=== PATIENT | female | born 1965 | race Caucasian/White ===

== ENCOUNTER → 2017-02-19 | Day surgery (SDC) | payer BC ==
[~2017-02-19] MED LIST: Acetaminophen/oxyCODONE 325-5 MG Tab PO PRN; Albuterol 0.083% 2.5 MG/3 ML Neb Soln NEB ONE; Glycopyrrolate 0.2 MG/ML SDV ONE; HYDROCHLOROTHIAZIDE 25 MG PO SCH; HYDROmorphone 0.5 MG/0.5 ML Syringe IVPUSH PRN; HYDROmorphone 1 MG/ML Syringe ONE; Ibuprofen 600 MG Tab PO PRN; Ketorolac 15 MG/ML SDV IVPUSH SCH; Ketorolac 30 MG/ML SDV ONE; Lactated Ringers 1,000 ML ONE; Lidocaine 1% 4 ML ONE; Lidocaine 1%/Sod Bicarbonate in NS 8.4% 1 ML Syringe PRN; METFORMIN 500 MG PO SCH; Magnesium Hydroxide 400 MG/5 ML Susp 30 ML Cup PO PRN; Metoclopramide 10 MG/2 ML SDV IV PRN; Midazolam 1 MG/ML 2 ML SDV ONE; Montelukast 10 MG Tab PO SCH; Neostigmine Methylsulfate 10 MG/10 ML MDV ONE; Ondansetron 4 MG/2 ML SDV IVPUSH PRN; Ondansetron 4 MG/2 ML SDV ONE; PIOGLITAZONE HCL 45 MG PO SCH; Pantoprazole 40 MG Tab.CR PO SCH; Phenylephrine 1 MG in Sodium Chloride 0.9% 10 ML IV SCH; Promethazine 12.5 MG in Sodium Chloride 0.9% 50 ML IV PRN; Propofol 200 MG/20 ML SDV ONE; Rocuronium 50 MG/5 ML Vial ONE; Scopolamine 1.5 MG Transdermal Patch TRDERM ONE; Sodium Chloride 0.9% 10 ML Syringe FLUSH PRN; Succinylcholine 200 MG/10 ML MDV ONE; ceFAZolin 1 GM Vial ONE; diphenhydrAMINE 50 MG/ML SDV IVPUSH PRN; fentaNYL 100 MCG/2 ML SDV IVPUSH PRN; fentaNYL 100 MCG/2 ML SDV ONE; fentaNYL 250 MCG/5 ML SDV ONE
--- NOTE | 2017-02-19 06:56 | PCM.PREANE ---
Preanesthetic Assessment - Anesthesia/Transfusion/Family Hx Anesthesia History: Prior Anesthesia Reaction Type of Anesthesia Reaction: Excessive Nausea/Vomiting Family History of Anesthesia Reaction: No Transfusion History: No Prior Transfusion(s) Intubation History: Unknown - Review of Systems General: No Symptoms Pulmonary: No Symptoms (seasonal allergies on singulair) Cardiovascular: No Symptoms (History of fluid retention on HCTZz), Dyspnea on Exertion Gastrointestinal: No Symptoms (GERD) Neurological: No Symptoms (Peripheral neuropathy), Numbness (bilateral big toe numbness noted.) Other: Reports: Diabetes (AM blood [id number] @ 0721), Sinus Problem (sinusitis, allergic rhinitis), Depression, Anxiety - Physical Assessment NPO Status Date: 02/18/17 NPO Status Time: 23:00 Pulse: 72 O2 Sat by Pulse Oximetry: 96 Respiratory Rate: 20 Blood Pressure: 147/78 Temperature: 36.6 C Height: 1.68 m Weight: 127.913 kg ASA Class: 2 Mental Status: Alert & Oriented x3 Airway Class: Mallampati = 3 Dentition: Reports: Normal Dentition, Caries Thyro-Mental Finger Breadths: 3 Mouth Opening Finger Breadths: 3 ROM/Head Extension: Full Lungs: Clear to Auscultation, Normal Respiratory Effort Cardiovascular: Regular Rate, Regular Rhythm, No Murmurs - Lab Values: Lab values reviewed and noted and within acceptable ranges to proceed with scheduled procedure. - Imaging/EKG Impressions: EKG: SR rate= 70 CXR: unremarkable - Allergies Allergies/Adverse Reactions: Allergies Allergy/AdvReac Type Severity Reaction Status Date / Time amlodipine Allergy Dizziness Verified 02/18/17 15:45 amoxicillin trihydrate Allergy Hives Verified 02/18/17 15:45 [From Augmentin] potassium clavulanate Allergy Hives Verified 02/18/17 15:45 [From Augmentin] Sulfa (Sulfonamide Allergy Hives Verified 02/18/17 15:45 Antibiotics) - Anesthesia Plan Pre-Op Medication Ordered: None - Acknowledgements Anesthesia Type Planned: General Anesthesia Pt an Appropriate Candidate for the Planned Anesthesia: Yes Alternatives and Risks of Anesthesia Discussed w Pt/Guardian: Yes Pt/Guardian Understands and Agrees with Anesthesia Plan: Yes PreAnesthesia Questionnaire HEENT History: Reports: Allergic Rhinitis, Impaired Vision, Sinusitis, Other ( See Below) Other HEENT History: Right ear pain Cardiovascular History: Reports: High Cholesterol, Other (See Below) Other Cardiovascular History: fluid retention Respiratory History: Reports: None Gastrointestinal History: Reports: GERD Other Gastrointestinal History: umbilical hernia, bloating Genitourinary History: Reports: Urinary Incontinence, UTI, Recurrent Other Genitourinary History: bacterial vaginitis, frequency, stress urinary incontinence BEEF GRINDER History: Reports: Dysfunctional Uterine Bleeding, , Other (See Below) Other OB/BYN History: menorrhagia, , thickened endometrium Musculoskeletal History: Reports: None Neurological History: Reports: Neuropathy, Peripheral Psychiatric History: Reports: Anxiety, Depression Endocrine/Metabolic History: Reports: Diabetes, Type II, Vitamin D Deficiency Hematologic History: Reports: None Immunologic History: Reports: None Oncologic (Cancer) History: Reports: None Dermatologic History: Reports: Other (See Below) Other Dermatologic History: bacterial infection of finger/toe, fungal rash of trunk, eczema - Past Surgical History Head Surgeries/Procedures: Reports: None HEENT Surgical History: Reports: Oral Surgery Cardiovascular Surgical History: Reports: None Respiratory Surgical History: Reports: None GI Surgical History: Reports: Colonoscopy Female Surgical History: Reports: Section, D&C, Tubal Ligation Male Surgical History: Reports: None Endocrine Surgical History: Reports: None Neurological Surgical History: Reports: None Musculoskeletal Surgical History: Reports: Other (See Below) Other Musculoskeletal Surgeries/Procedures:: Right shoulder pain, tennis elbow Oncologic Surgical History: Reports: None - SUBSTANCE USE Smoking Status *Q: Never Smoker Second Hand Smoke Exposure: No Days Per Week of Alcohol Use: 0 Number of Drinks Per Day: 0 Total Drinks Per Week: 0 Recreational Drug Use History: No - HOME MEDS Home Medications: Home Meds Aspirin [Halfprin] 81 mg PO DAILY 10/23/14 [History] Citalopram Hydrobromide [Citalopram HBr] 40 mg PO DAILY 10/23/14 [History] Hydrochlorothiazide 25 mg PO DAILY 10/23/14 [History] Montelukast [Singulair] 10 mg PO BEDTIME 10/23/14 [History] Omeprazole 20 mg PO DAILY 10/23/14 [History] Rosuvastatin Calcium [Crestor] 5 mg PO DAILY 10/23/14 [History] Betamethasone Dipropionate [Diprosone 0.05% Crm] 1 applic TOP ASDIRECTED PRN [History] Losartan [Cozaar] 12.5 mg PO DAILY 02/18/17 [History] Norethindrone 0.35 mg PO DAILY 02/18/17 [History] Pioglitazone HCl 45 mg PO DAILY 02/18/17 [History] metFORMIN [Glucophage XR] 1,000 mg PO BEDTIME 02/18/17 [History] - CURRENT (IN HOUSE) MEDS Current Meds: Current Medications Lactated Ringer's (Ringers, Lactated) 1,000 mls @ 125 mls/hr IV ASDIRECTED TIEN Stop: 02/19/17 23:00 Lidocaine/Sodium Bicarbonate (Buffered Lidocaine 1% In Ns 8.4%) 0.25 ml .XX ONETIME PRN PRN Reason: Prior to IV Start Stop: 02/19/17 18:00 Sodium Chloride (Saline Flush) 10 ml FLUSH ASDIRECTED PRN PRN Reason: Keep Vein Open Stop: 02/19/17 18:00
[2017-02-19] MEDS: Lactated Ringers 1,000 ML IV SCH ×2 (07:25→14:08)
--- NOTE | 2017-02-19 09:38 | PCM.POSTAN ---
POST ANESTHESIA ASSESSMENT - MENTAL STATUS Mental Status: Alert - VITAL SIGNS Pulse Rate: 99 SaO2: 95 Resp Rate: 13 Blood Pressure: 164/91 Temperature: 36.9 C - RESPIRATORY Respiratory Status: Respiratory Rate WNL, Airway Patent, O2 Saturation Stable, Supplemental Oxygen - CARDIOVASCULAR CV Status: Pulse Rate WNL, Blood Pressure Stable - GASTROINTESTINAL GI Status: No Symptoms - POST OP HYDRATION Hydration Status: Adequate & Stable
--- NOTE | 2017-02-19 09:48 | PCM.OPNOTE ---
- General Post-Op/Procedure Note Date of Surgery/Procedure: 02/19/17 Operative Procedure(s): Total vaginal hysterectomy with bilateral salpingo- oophorectomy Findings: Uterus was normal size, fallopian tubes and ovaries were normal and functional in nature. Pre Op Diagnosis: Abnormal uterine bleeding Post-Op Diagnosis: Same Anesthesia Technique: General ET Tube Other Anesthesia Type: Lidocaine quarter percent with [id number] mL local Primary Surgeon: Jenaro Martinez Secondary Surgeon: Lucian Lira Anesthesia Provider: Elizabeth Arnold Sales Representative Printing: Anabella Amaya Pathology: Uterus tubes and ovaries in one specimen container Fluid Replacement, Intraop: 1,300 EBL in mLs: 150 Complications: None Condition: Good Free Text/Narrative:: Surgery duration: 46 minutes Procedure: Procedure: The patient was placed in supine position on the operating table. General endotracheal anesthesia was accomplished. After positioning, and adequate prep and drape, the procedure was then performed. Sterile speculum was placed in the vagina and cervix was visualized. Cervix was injected with [ lidocaine quarter percent with epinephrine]. [20 cc] used. A full circumference incision was made in the cervical epithelium. The bladder was pushed well back off cervix. Posterior cul-de-sac was then entered sharply without problems. Left uterosacral was crossclamped with a Enseal vessel closure system. The left uterosacral and then the right uterosacral ligament pedicles were developed using the Enseal system. The anterior cul-de-sac was then entered without problems and the uterine vasculature, cardinal ligament and broad ligament then developed using Enseal vessel closure system. The uterus was inverted at this time and upper broad ligament fallopian tube pedicles were crossclamped with Linnea clamps. Specimen was totally removed. Left and right fallopian tube was normal in appearance.. Using Enseal vessel closure system each of the tubes was then removed and sent with the specimen. The posterior vaginal cuff was run with an 0 Monocryl suture from approximately 2:00 to 10 o'clock position for hemostatic reasons. The patient was found to be hemostatically intact at this time, both ovaries appeared normal, but were removed per patient desire.. A pursestring suture was and placed in the peritoneal cavity externalizing pedicles in case of bleeding. Vaginal cuff was closed with running locked suture of 0 Monocryl. Patient was returned to supine position and awakened from general endotracheal anesthesia. She tolerated the procedure was then left the operating room in satisfactory condition.
--- NOTE | 2017-02-19 11:17 | PCM48HPAN ---
Post Anesthesia Note - EVALUATION WITHIN 48HRS OF ANESTHETIC Vital Signs in Normal Range: Yes Patient Participated in Evaluation: Yes Respiratory Function Stable: Yes Airway Patent: Yes Cardiovascular Function Stable: Yes Hydration Status Stable: Yes Pain Control Satisfactory: Yes Nausea and Vomiting Control Satisfactory: Yes Mental Status Recovered: Yes
[2017-02-19] MEDS: Albuterol 0.083% 2.5 MG/3 ML Neb Soln NEB SCH ×3 (17:59→21:58)
[2017-02-19] MEDS: Acetaminophen/oxyCODONE 325-5 MG Tab PO PRN (20:58)
[2017-02-19] MEDS: Docusate Sodium 100 MG Cap PO SCH (21:37)
[2017-02-20] MEDS: Albuterol 0.083% 2.5 MG/3 ML Neb Soln NEB SCH ×3 (02:15→10:43)
[2017-02-20] MEDS: Acetaminophen/oxyCODONE 325-5 MG Tab PO PRN (02:31)
[2017-02-20] MEDS: Docusate Sodium 100 MG Cap PO SCH (08:02)
[2017-02-20 09:05] VITALS: BP 124/77
--- NOTE | 2017-02-20 09:50 | PCM.DCSUM1 ---
Discharge Summary - Hospital Course Free Text/Narrative:: Charlene Back is a 51-year-old female status post a total vaginal hysterectomy that was done for abnormal uterine bleeding. This was planned as a same-day surgery with patient to go home following the operation. The procedure was overall uncomplicated. She was meeting postoperative milestones including ambulating without difficulty, pain was able to be controlled with oral medications, and she was voiding without difficulty. She was tolerating a regular diet. Prior to being discharged her oxygen saturations were dropping to the mid 80s without support of oxygen of 1-2.5 L/m. Patient was given an albuterol treatment on postop day #0 that helped for a short while but again she dropped her O2 sats to the mid 80s. Decision was made to keep patient overnight for extended monitoring and continue oxygen and nebulizer treatments. In the morning of postoperative day #1 she continued to be doing well with her pain being well controlled, minimal vaginal bleeding, voiding without difficulty, tolerating a regular diet, ambulating without difficulty. Her O2 saturations had improved significantly and at rest she was in the mid 90s and with mild activity and talking she would drop to the high 80s to low 90s. This is felt that this was safe for her to go home as she did not feel short of breath or have any chest pain. Suspect that this is related to anesthesia and will resolve with additional time after the surgery. Patient discharged home in good condition. She will follow up with Dr. Martinez in 2 weeks. HPI Initial Comments: Charlene Back is a 51-year-old female status post a total vaginal hysterectomy that was done for abnormal uterine bleeding. This was planned as a same-day surgery with patient to go home following the operation. The procedure was overall uncomplicated. She was meeting postoperative milestones including ambulating without difficulty, pain was able to be controlled with oral medications, and she was voiding without difficulty. She was tolerating a regular diet. Prior to being discharged her oxygen saturations were dropping to the mid 80s without support of oxygen of 1-2.5 L/m. Patient was given an albuterol treatment on postop day #0 that helped for a short while but again she dropped her O2 sats to the mid 80s. Decision was made to keep patient overnight for extended monitoring and continue oxygen and nebulizer treatments. In the morning of postoperative day #1 she continued to be doing well with her pain being well controlled, minimal vaginal bleeding, voiding without difficulty, tolerating a regular diet, ambulating without difficulty. Her O2 saturations had improved significantly and at rest she was in the mid 90s and with mild activity and talking she would drop to the high 80s to low 90s. This is felt that this was safe for her to go home as she did not feel short of breath or have any chest pain. Suspect that this is related to anesthesia and will resolve with additional time after the surgery. Patient discharged home in good condition. She will follow up with Dr. Martinez in 2 weeks. Brief History: Charlene Back is a 51-year-old female status post a total vaginal hysterectomy that was done for abnormal uterine bleeding. This was planned as a same-day surgery with patient to go home following the operation. The procedure was overall uncomplicated. She was meeting postoperative milestones including ambulating without difficulty, pain was able to be controlled with oral medications, and she was voiding without difficulty. She was tolerating a regular diet. Prior to being discharged her oxygen saturations were dropping to the mid 80s without support of oxygen of 1-2.5 L/ m. Patient was given an albuterol treatment on postop day #0 that helped for a short while but again she dropped her O2 sats to the mid 80s. Decision was made to keep patient overnight for extended monitoring and continue oxygen and nebulizer treatments. In the morning of postoperative day #1 she continued to be doing well with her pain being well controlled, minimal vaginal bleeding, voiding without difficulty, tolerating a regular diet, ambulating without difficulty. Her O2 saturations had improved significantly and at rest she was in the mid 90s and with mild activity and talking she would drop to the high 80s to low 90s. This is felt that this was safe for her to go home as she did not feel short of breath or have any chest pain. Suspect that this is related to anesthesia and will resolve with additional time after the surgery. Patient discharged home in good condition. She will follow up with Dr. Martinez in 2 weeks. - Discharge Data Discharge Date: 02/20/17 Discharge Disposition: Home, Self-Care 01 Condition: Good - Discharge Diagnosis/Problem(s) (1) S/P vaginal hysterectomy SNOMED Code(s): 191535224, [id number] ICD Code: Z90.710 - ACQUIRED ABSENCE OF BOTH CERVIX AND UTERUS Status: Acute Current Visit: Yes - Patient Summary/Data Operative Procedure(s) Performed: Total vaginal hysterectomy with bilateral salpingo-oophorectomy Complications: Hypoxemia on room air on postop day #0 through the night to postop day #1, resolved in a.m. of postop day #1 Consults: Consultations 02/19/17 17:34 Consult to Respiratory Therapy [Respiratory Care Assess and Treatment] [CONS] Routine - Patient Instructions Diet: Usual Diet as Tolerated Activity: As Tolerated (No intercourse or tampons until seen back. No lifting greater than 15 pounds or driving a car 1 week.) Driving: Do Not Drive Showering/Bathing: May Shower (May take a bath) Notify Provider of: Fever, Increased Pain, Swelling and Redness, Drainage, Nausea and/or Vomiting - Discharge Plan Prescriptions/Med Rec: Ibuprofen 600 mg PO Q4H PRN #30 tablet PRN Reason: Pain Home Medications: Home Meds Aspirin [Halfprin] 81 mg PO DAILY 10/23/14 [History] Citalopram Hydrobromide [Citalopram HBr] 40 mg PO DAILY 10/23/14 [History] Hydrochlorothiazide 25 mg PO DAILY 10/23/14 [History] Montelukast [Singulair] 10 mg PO BEDTIME 10/23/14 [History] Omeprazole 20 mg PO DAILY 10/23/14 [History] Rosuvastatin Calcium [Crestor] 5 mg PO DAILY 10/23/14 [History] Losartan [Cozaar] 12.5 mg PO DAILY 02/18/17 [History] Pioglitazone HCl 45 mg PO DAILY 02/18/17 [History] metFORMIN [Glucophage XR] 1,000 mg PO BEDTIME 02/18/17 [History] Acetaminophen/oxyCODONE [Percocet 325-5 MG] 2 tab PO Q4H PRN #30 tablet [Rx] Ibuprofen 600 mg PO Q4H PRN #30 tablet 02/19/17 [Rx] Patient Handouts: Hysterectomy Information, [id number], Pelvic Rest, Hysterectomy Information Referrals: Jenaro Martinez MD [Physician] - (Return [facility] weeks. Patient states she already has an appt for March 24) - Discharge Summary/Plan Comment DC Time >30 min.: No - Patient Data Vitals - Most Recent: Last Vital Signs Temp 36.8 C 02/20/17 08:54 Pulse 91 02/20/17 08:54 Resp 18 02/20/17 08:54 BP 124/77 02/20/17 08:54 Pulse Ox 93 L 02/20/17 08:54 Weight - Most Recent: 129.773 kg I&O - Last 24 hours: Intake & Output 02/19/17 02/20/17 02/20/17 22:59 06:59 14:59 Intake Total 240 1600 Balance 240 1600 Lab Results - Last 24 hrs: Laboratory Results - last 24 hr 02/19/17 02/20/17 Range/Units 21:43 06:37 POC Glucose 136 H 152 H (70-105) mg/dL Med Orders - Current: Current Medications Albuterol (Proventil Neb Soln) 2.5 mg NEB Q4HRRT [facility] Last Admin: 02/20/17 06:42 Dose: 2.5 mg Docusate Sodium (Colace) 100 mg PO BID [facility] Last Admin: 02/20/17 08:02 Dose: 100 mg Hydrochlorothiazide (Hydrochlorothiazide) 25 mg PO BEDTIME [facility] Last Admin: 02/19/17 21:47 Dose: Not Given Hydromorphone HCl (Dilaudid) 0.2 mg IVPUSH Q2H PRN PRN Reason: Pain (severe 7-10) Promethazine HCl 12.5 mg/ (Sodium Chloride) 50.5 mls @ 200 mls/hr IV Q6H PRN PRN Reason: Nausea/Vomiting Ibuprofen (Motrin) 600 mg PO Q6H PRN PRN Reason: Pain Last Admin: 02/19/17 20:57 Dose: 600 mg Losartan Potassium (Cozaar) 12.5 mg PO BEDTIME TIEN Last Admin: 02/19/17 21:46 Dose: 12.5 mg Magnesium Hydroxide (Milk Of Magnesia) 30 ml PO BID PRN PRN Reason: Constipation Montelukast Sodium (Singulair) 10 mg PO BEDTIME TIEN Last Admin: 02/19/17 21:49 Dose: Not Given (Citalopram Hydrobromide [ Citalopram Hbr] 40 Mg)*Pt Own Supply * 40 mg PO BEDTIME TIEN Last Admin: 02/19/17 21:45 Dose: 40 mg (Metformin Er 500 Mg (Tab)*Pt Own Med*) 1,000 mg PO BEDTIME [facility] Last Admin: 02/19/17 21:48 Dose: 1,000 mg (Pioglitazone Hcl [ Pioglitazone Hcl] 45 Mg)*Pt Own Med* 45 mg PO BEDTIME [facility] Last Admin: 02/19/17 21:49 Dose: 45 mg Oxycodone/Acetaminophen (Percocet 325-5 Mg) 2 tab PO Q6H PRN PRN Reason: Pain (moderate 4-6) Last Admin: 02/20/17 02:31 Dose: 1 tab Pantoprazole Sodium (Protonix) 40 mg PO DAILY@0700 [facility] Last Admin: 02/20/17 06:47 Dose: Not Given Rosuvastatin Calcium (Crestor) 5 mg PO BEDTIME [facility] Last Admin: 02/19/17 21:47 Dose: 5 mg Discontinued Medications Albuterol (Proventil Neb Soln) 2.5 mg NEB ONETIME ONE Stop: 02/19/17 07:42 Last Admin: 02/19/17 07:52 Dose: 2.5 mg Albuterol (Proventil Neb Soln) 2.5 mg NEB ONETIME ONE Stop: 02/19/17 08:46 Cefazolin Sodium (Ancef) Confirm Administered Dose 2 gm .ROUTE .STK-MED ONE Stop: 02/19/17 07:40 Diphenhydramine HCl (Benadryl) 25 mg IVPUSH Q6H PRN PRN Reason: pruritis Stop: 02/19/17 18:00 Fentanyl (Sublimaze) Confirm Administered Dose 250 mcg .ROUTE .STK-MED ONE Stop: 02/19/17 07:41 Fentanyl (Sublimaze) 50 mcg IVPUSH Q5M PRN PRN Reason: Pain Stop: 02/19/17 18:00 Fentanyl (Sublimaze) Confirm Administered Dose 100 mcg .ROUTE .STK-MED ONE Stop: 02/19/17 09:13 Glycopyrrolate (Robinul) Confirm Administered Dose 0.2 mg .ROUTE .STK-MED ONE Stop: 02/19/17 09:14 Glycopyrrolate (Robinul) Confirm Administered Dose 0.2 mg .ROUTE .STK-MED ONE Stop: 02/19/17 09:14 Glycopyrrolate (Robinul) Confirm Administered Dose 0.2 mg .ROUTE .STK-MED ONE Stop: 02/19/17 09:14 Glycopyrrolate (Robinul) Confirm Administered Dose 0.2 mg .ROUTE .STK-MED ONE Stop: 02/19/17 09:14 Glycopyrrolate (Robinul) Confirm Administered Dose 0.2 mg .ROUTE .STK-MED ONE Stop: 02/19/17 09:14 Hydromorphone HCl (Dilaudid) Confirm Administered Dose 1 mg .ROUTE .STK-MED ONE Stop: 02/19/17 07:40 Hydromorphone HCl (Dilaudid) 0.5 mg IVPUSH Q15M PRN PRN Reason: severe pain Stop: 02/19/17 18:00 Hydromorphone HCl (Dilaudid) Confirm Administered Dose 1 mg .ROUTE .STK-MED ONE Stop: 02/19/17 10:07 Lactated Ringer's (Ringers, Lactated) 1,000 mls @ 125 mls/hr IV ASDIRECTED [facility] Stop: 02/19/17 23:00 Last Admin: 02/19/17 14:08 Dose: 125 mls/hr Lidocaine HCl (Xylocaine-Mpf 1%) Confirm Administered Dose 4 mls @ as directed .ROUTE .[facility]-MED ONE Stop: 02/19/17 07:40 Lactated Ringer's (Ringers, Lactated) Confirm Administered Dose 1,000 mls @ as directed .ROUTE .ST-MED ONE Stop: 02/19/17 07:40 Phenylephrine HCl 1 mg/ Sodium (Chloride) 10.1 mls @ 1 mls/sec IV TITRATE [facility] PRN Reason: Protocol Stop: 02/19/17 18:00 Ketorolac Tromethamine (Toradol) Confirm Administered Dose 30 mg .ROUTE .STK- MED ONE Stop: 02/19/17 07:40 Ketorolac Tromethamine (Toradol) 15 mg IVPUSH Q6H [facility] Stop: 02/20/17 05:13 Lidocaine/Sodium Bicarbonate (Buffered Lidocaine 1% In Ns 8.4%) 0.25 ml .XX ONETIME PRN PRN Reason: Prior to IV Start Stop: 02/19/17 18:00 Last Admin: 02/19/17 07:24 Dose: 0.25 ml Metoclopramide HCl (Reglan) 10 mg IV ONETIME PRN PRN Reason: Nausea/Vomiting Stop: 02/19/17 18:00 Last Admin: 02/19/17 10:15 Dose: 10 mg Midazolam HCl (Versed 1 Mg/Ml) Confirm Administered Dose 2 mg .ROUTE .STK-MED ONE Stop: 02/19/17 07:41 Miscellaneous Information (Remove Patch) 1 ea TRDERM ONETIME ONE Stop: 02/22/17 07:01 Neostigmine Methylsulfate (Neostigmine Methylsulfate) Confirm Administered Dose 10 mg .ROUTE .STK-MED ONE Stop: 02/19/17 09:14 Ondansetron HCl (Zofran) Confirm Administered Dose 4 mg .ROUTE .STK-MED ONE Stop: 02/19/17 07:40 Ondansetron HCl (Zofran) 4 mg IVPUSH ONETIME PRN PRN Reason: Nausea/Vomiting Stop: 02/19/17 18:00 Last Admin: 02/19/17 14:16 Dose: 4 mg Ondansetron HCl (Zofran) 4 mg IVPUSH Q4H PRN PRN Reason: Nausea Stop: 02/19/17 18:00 Oxycodone/Acetaminophen (Percocet 325-5 Mg) 2 tab PO Q4H PRN PRN Reason: Pain Stop: 02/19/17 16:00 Last Admin: 02/19/17 12:37 Dose: 2 tab Propofol (Diprivan 20 Ml) Confirm Administered Dose 200 mg .ROUTE .STK-MED ONE Stop: 02/19/17 07:40 Rocuronium [place] (Zemuron) Confirm Administered Dose 50 mg .ROUTE .STK-MED ONE Stop: 02/19/17 07:40 Scopolamine (Transderm-Scop) 1.5 mg TRDERM ONETIME ONE Stop: 02/19/17 06:50 Last Admin: 02/19/17 07:37 Dose: 1.5 mg Sodium Chloride (Saline Flush) 10 ml FLUSH ASDIRECTED PRN PRN Reason: Keep Vein Open Stop: 02/19/17 18:00 Succinylcholine Chloride (Quelicin) Confirm Administered Dose 200 mg .ROUTE .STK -MED ONE Stop: 02/19/17 10:06 *Q Meaningful Use (DIS) - VTE *Q VTE Criteria *Q: - Stroke *Q Stroke Criteria *Q: - AMI *Q AMI Criteria *Q:
== END | disposition home or self-care (01) ==
LOC: JD.SDS 07:01 → JD.MS 15:22 → UNDOADMOB 15:22 → UNDODISOB 02-20 10:05
PROVIDERS: ATTEND Obstetrics & Gynecology
DX: D25.9 Leiomyoma of uterus, unspecified (principal); N73.6 Female pelvic peritoneal adhesions (postinfective); N80.0 Endometriosis of uterus; K21.9 Gastro-esophageal reflux disease without esophagitis; F41.9 Anxiety disorder, unspecified; F32.9 Major depressive disorder, single episode, unspecified; E11.40 Type 2 diabetes mellitus with diabetic neuropathy, unspecified; Z88.1 Allergy status to other antibiotic agents; Z88.2 Allergy status to sulfonamides; Z88.8 Allergy status to other drugs, medicaments and biological substances; Z79.82 Long term (current) use of aspirin; Z79.899 Other long term (current) drug therapy; Z79.84 Long term (current) use of oral hypoglycemic drugs; Z98.890 Other specified postprocedural states; Z98.51 Tubal ligation status; Z72.0 Tobacco use
CPT/HCPCS: 36415; 58552; 82962; 86850; 86900; 86901; 94640; 94664; 94762; A9270; J0330; J0690; J1170; J1885; J2250; J2405; J2710; J2765; J3010; J3490; J7120; 00944; J2704

== ENCOUNTER 2022-04-27 11:34 | Emergency (ER) | payer BC ==
[2022-04-27 13:12] VITALS: BP 129/75; PULSE 68
== END 2022-04-27 13:13 | disposition home or self-care (01) ==
LOC: JD.ED 11:34
DX: S82.65XA Nondisplaced fracture of lateral malleolus of left fibula, initial encounter for closed fracture (principal); E78.00 Pure hypercholesterolemia, unspecified; E11.9 Type 2 diabetes mellitus without complications; Z88.0 Allergy status to penicillin; Z88.2 Allergy status to sulfonamides; Z88.8 Allergy status to other drugs, medicaments and biological substances; Z79.82 Long term (current) use of aspirin; Z79.899 Other long term (current) drug therapy; Z79.84 Long term (current) use of oral hypoglycemic drugs; Z90.710 Acquired absence of both cervix and uterus; W18.40XA Slipping, tripping and stumbling without falling, unspecified, initial encounter
CPT/HCPCS: 73610-26-LT; 73610-LT; 99283